=== PATIENT | female | born 1985 | race Caucasian/White ===

== ENCOUNTER → 2016-12-08 | Outpatient (CLI) | payer BC ==
--- NOTE | 2016-12-08 21:51 | DI ---
OBSTETRICAL ULTRASOUND, 12/08/2016 4:00 PM: Clinical History: Antepartum screening. Previous Exam: None at this facility for this . ADJUSTED DATE FROM EARLY OBUS: 07/10/2016. There is a single live IUP currently in unstable presentation. Amnionic fluid content is normal. Feta l activity is observed as follows: Cardiac and extremity. The placenta is posterior corpus and lower in segment and Grade 0. The placenta does not encroach on the internal os. heart rate is 158 be ats/minute and regular. There is a 3 vessel cord. A 4 chamber heart view is obtained, but the views o f the RVOT and LVOT are suboptimal due to position. The descending aortic arch and the descendi ng aorta are normal. The ascending component of the arch is not optimally visualized. There is mild b ilateral pelviectasis that is still within normal limits. BPD, HC, AC, and FL measurements are 56 mm, 204 mm, 183 mm, and 37 mm, respectively. These measurements correspond to EGA values of 23 wee ks 1 day, 22 weeks 4 days, 23 weeks 1 day and 21 weeks 6 days, respectively. Composite EGA is 22 week s 5 days. The US EDC is 04/08/2017. EDC by adjusted date from early OBUS is 04/16/2017. Readin. Single live fetus with unstable presentation and normal amniotic fluid content. Placenta is poste rior corpus and grade 1. 2. The composite EGA is 22 weeks 5 days with an ultrasound EDC of 04/08/2017. The EDC is 04/16/2017 ba sed on the adjusted LMP of 07/10/2016. 3. Evaluation of the RVOT, LVOT, and the ascending aortic arch is not optimal due to position. Repeat followup scans are recommended. At that time, we can also reassess the status of both renal p elves.
== END ==
LOC: US 15:54
PROVIDERS: ATTEND Obstetrics & Gynecology
DX: Z36 Encounter for antenatal screening of mother (principal); Z3A.21 21 weeks gestation of pregnancy
CPT/HCPCS: 76805

== ENCOUNTER → 2016-12-16 | Outpatient (CLI) | payer BC ==
--- NOTE | 2016-12-16 21:46 | DI ---
LIMITED OBSTETRICAL ULTRASOUND, 12/16/2016 10:56 AM Clinical History: Followup scans to complete anatomic survey. Previous Exam: 12/08/2016. ADJUSTED LMP: 07/12/2016. There is a single live IUP currently in unstable presentation. Amnionic fluid content is normal. Feta l activity is observed as follows: Cardiac and extremity. The placenta is posterior corpus and Grade 1. heart rate is 163 beats/minute and regular. There is a 4 chamber heart view. RVOT and LVOT v iews are normal. The aortic arch is also normal. Transverse views through the kidneys show no dilatat ion of the renal pelves. Readin. Scans of the 4 chamber heart, RVOT, LVOT, and aortic arch are normal. 2. Scans of the kidneys show no pelviectasis. 3. The anatomic survey is complete and is normal.
== END ==
LOC: US 10:52
PROVIDERS: ATTEND Obstetrics & Gynecology
DX: Z36 Encounter for antenatal screening of mother (principal); Z3A.22 22 weeks gestation of pregnancy
CPT/HCPCS: 76816

== ENCOUNTER → 2017-01-29 | Outpatient (CLI) | payer BC ==
[2017-01-29 10:57] LABS: HEMATOCRIT 38.1 % (37.0-47.0); MEAN CORPUSCULAR HEMOGLOBIN 30.3 PG (27-31); MEAN CORPUSCULAR HGB CONC 34.1 g/dL (33-37); MEAN PLATELET VOLUME 8.6 FL (7.4-12.2); RDW COEFFICIENT OF VARIATION 12.7 % (11.5-14.5); RED BLOOD COUNT 4.29 10^6/uL (4.20-5.40); WHITE BLOOD COUNT 9.24 10^3/uL (4.8-10.8)
== END ==
LOC: LAB 09:40
PROVIDERS: ATTEND Obstetrics & Gynecology
DX: Z36 Encounter for antenatal screening of mother (principal); Z3A.28 28 weeks gestation of pregnancy
CPT/HCPCS: 36415; 82950; 85027

== ENCOUNTER 2017-03-15 17:52 | Outpatient (CLI) | payer BC ==
[2017-03-15] MEDS ORDERED: NORMAL SALINE 10 ML SYRINGE FLUSH IVP PRN (17:59)
[2017-03-15 18:02] VITALS: RESP 16; TEMP 97.9
[2017-03-15 18:20] LABS: HEMATOCRIT 38.6 % (37.0-47.0); HEMOGLOBIN 13.4 g/dL (12.0-16.0); MEAN CORPUSCULAR HEMOGLOBIN 30.5 PG (27-31); MEAN CORPUSCULAR HGB CONC 34.7 g/dL (33-37); MEAN CORPUSCULAR VOLUME 87.9 FL (81-99); MEAN PLATELET VOLUME 8.9 FL (7.4-12.2); RED BLOOD COUNT 4.39 10^6/uL (4.20-5.40)
[2017-03-15 18:34] LABS: BLOOD UREA NITROGEN 9 mg/dL (7-22); CALCIUM 8.3 mg/dL (8.7-10.7); EST GLOMERULAR FILTRATION > 60 (>60 ml/min/1.73m(2)); SERUM ALBUMIN 3.4 g/dL (3.5-4.8); URIC ACID 4.1 mg/dl (2.5-6.2)
== END 2017-03-15 19:00 | disposition home or self-care (01) ==
LOC: OBOP 17:52
PROVIDERS: ATTEND Obstetrics & Gynecology
DX: O26.893 Other specified pregnancy related conditions, third trimester (principal); R51 Headache; Z3A.35 35 weeks gestation of pregnancy
CPT/HCPCS: 36415; 59025; 80053; 81003; 83615; 84550; 85025; 99211

== ENCOUNTER → 2017-03-23 | Outpatient (CLI) | payer BC | LOC: MOB LAB 14:49 | PROVIDERS: ATTEND Obstetrics & Gynecology | DX: Z36 Encounter for antenatal screening of mother (principal); Z3A.36 36 weeks gestation of pregnancy | CPT/HCPCS: 87150 ==

== ENCOUNTER 2017-04-09 20:31 | Outpatient (CLI) | payer BC ==
[~2017-04-09 20:31] MED LIST: NORMAL SALINE 10 ML SYRINGE FLUSH IVP PRN
[2017-04-09 21:26] VITALS: RESP 20; TEMP 98.3
--- NOTE | 2017-04-10 08:38 | PDOC(PROG) ---
Intake - - Reason for Visit/Chief Complaint: Leakage of Fluid Admitted From: Home - LMP: 07/10/16 Estimated Due Date: 04/16/17 Gestational Age in Weeks and Days: 39 Weeks and 1 Days : 4 Para: 3 Term Births: 2 Births: 0 Number of Abortions (Spont./Elective): 0 Living Children: 2 - Labs Blood Type and Rh: O+ Group B Strep: Negative Hepatitis B Surface Antigen: Absent HIV: Negative Rubella Status: Immune VDRL/RPR: Absent Maternal - Vital Signs Last Taken Vital Signs: Vital Signs - Last Taken Temperature 98.3 F 04/09/17 20:12 Pulse Rate 82 04/09/17 20:12 Respiratory Rate 20 04/09/17 20:12 Blood Pressure 139/87 04/09/17 20:12 Pulse Ox 99 04/09/17 20:12 - Uterine Activity Uterine Contraction Monitor Mode: External Contraction Frequency(minutes): x2 Contraction Duration (seconds): 40-80 Uterine Contraction Pattern: Irregular Uterine Tone Measurement Phase: Resting Uterine Contraction Intensity: Mild - Vaginal Discharge Vaginal Bleeding Amount: None Monitoring - Uterine Activity Uterine Contraction Monitor Mode: External Contraction Frequency(minutes): x2 Contraction Duration (seconds): 40-80 Uterine Contraction Pattern: Irregular Uterine Tone Measurement Phase: Resting Uterine Contraction Intensity: Mild Results - Bedside Testing Bedside Urine Ketone: Negative Bedside Urine Leukocytes Esterase: Trace Bedside Urine Nitrite: Negative Bedside Urine Occult Blood: Negative Bedside Urine Protein: Negative Bedside Specific [place]: 1.010 Assessment and Plan - Patient Problems (1) Term Status: Acute (2) Vaginal discharge during in third trimester Status: AcuteSupport Text: Patient presented for evaluation of LOF. Amnisure negative. Reactive NST. Discharged to home with precautions.
== END 2017-04-09 21:00 | disposition home or self-care (01) ==
LOC: OBOP 20:31
PROVIDERS: ATTEND Obstetrics & Gynecology
DX: O26.893 Other specified pregnancy related conditions, third trimester (principal); N89.8 Other specified noninflammatory disorders of vagina; Z3A.39 39 weeks gestation of pregnancy
CPT/HCPCS: 59025; 81003; 84112; 99211

== ENCOUNTER 2017-04-17 10:50 | Inpatient (IN) | payer BC ==
[2017-04-17] MEDS ORDERED: Naloxone Inj 0.01 MG in Normal Saline Flush 1 ML IVP PRN (11:13)
[2017-04-17] MEDS ORDERED: OXYTOCIN 10 UNIT/1 ML IM PRN (11:13)
[2017-04-17] MEDS ORDERED: BUTORPHANOL TARTRATE 2 MG/1 ML VIAL IVP PRN (11:13)
[2017-04-17] MEDS ORDERED: Carboprost Inj 250 MCG/ML AMP IM PRN ×2 (11:13→12:45)
[2017-04-17] MEDS ORDERED: Metoclopramide Inj 10 MG/2 ML VIAL IV PRN (11:13)
[2017-04-17] MEDS ORDERED: CITRIC ACID/SODIUM CITRATE 30 ML CUP PO PRN (11:13)
[2017-04-17] MEDS ORDERED: MISOPROSTOL 200 MCG TABLET RECTAL PRN (11:13)
[2017-04-17] MEDS ORDERED: TERBUTALINE SULFATE 1 MG/1 ML SDV SUBCUT PRN (11:13)
[2017-04-17] MEDS ORDERED: Lidocaine 1% 10 MG/ML - 20 ML VIAL SUBCUT PRN (11:13)
[2017-04-17] MEDS ORDERED: METHYLERGONOVINE MALEATE 0.2 MG/1 ML VIAL IM PRN ×2 (11:13→12:45)
[2017-04-17] MEDS ORDERED: Nalbuphine Inj 20 MG/ML Ampule IVP PRN ×2 (11:13→12:45)
[2017-04-17] MEDS ORDERED: ONDANSETRON 4 MG/2 ML VIAL IVP PRN ×2 (11:13→12:45)
[2017-04-17] MEDS ORDERED: LIDOCAINE W/ SODIUM BICARB 0.5 ML SYR SUBD PRN (11:13)
[2017-04-17] MEDS ORDERED: Phenylephrine Inj 50 MCG in Normal Saline Flush 0.5 ML IVP PRN (11:13)
[2017-04-17] MEDS ORDERED: CALCIUM CARBONATE 500 MG (TUMS) CHEWABLE TABLET PO PRN ×2 (11:13→12:45)
[2017-04-17] MEDS ORDERED: CefOXitin Inj 2 GM in Sodium Chloride 0.9% 100 ML IV PRN (11:13)
[2017-04-17] MEDS ORDERED: fentaNYL Inj 100 MCG/2 ML VIAL IV PRN (11:13)
[2017-04-17] MEDS ORDERED: Famotidine Inj 20 MG in Normal Saline Flush 10 ML IVP PRN ×4 (11:13)
[2017-04-17] MEDS ORDERED: ePHEDrine Inj 5 MG in Normal Saline Flush 1 ML IVP PRN (11:13)
[2017-04-17] MEDS ORDERED: NALOXONE 0.4 MG/1 ML VIAL IVP PRN (11:13)
[2017-04-17] MEDS ORDERED: diphenhydrAMINE 50 MG/1 ML VIAL IVP PRN ×2 (11:13→12:45)
[2017-04-17] MEDS ORDERED: NORMAL SALINE 10 ML SYRINGE FLUSH IVP PRN ×2 (11:13→12:45)
[2017-04-17] MEDS ORDERED: Oxytocin 20 Units + LR 1,000 ML IV SCH ×2 (11:15→12:45)
[2017-04-17] MEDS ORDERED: Lactated Ringers-OB Dept 1,000 ML PRIMARY IV SCH (11:15)
[2017-04-17 11:50] LABS: HEMATOCRIT 38.9 % (37.0-47.0); HEMOGLOBIN 13.4 g/dL (12.0-16.0); MEAN CORPUSCULAR HEMOGLOBIN 30.2 PG (27-31); MEAN CORPUSCULAR HGB CONC 34.4 g/dL (33-37); MEAN CORPUSCULAR VOLUME 87.8 FL (81-99); MEAN PLATELET VOLUME 9.6 FL (7.4-12.2); RED BLOOD COUNT 4.43 10^6/uL (4.20-5.40)
--- NOTE | 2017-04-17 12:43 | OB.DEL.SUM ---
Delivery Note Delivery Summary: The patient presented in labor at 4 cm dilation. Amniotomy was performed at 6 cm dilation with return of clear fluid, and she progressed rapidly to complete dilation. She pushed several times to of a viable male , Apgars 8/10 , weight 7# 14 oz., over an intact perineum. Nuchal cord x1 was reduced on the perineum. The placenta delivered promptly, spontaneously, intact, with a 3 vessel cord. EBL 200 ml. There were no complications. Mother and baby tolerated delivery well.
[2017-04-17] MEDS ORDERED: HYDROcodone-APAP 5 MG -325 MG TABLET PO PRN (12:45)
[2017-04-17] MEDS ORDERED: Methylergonovine Tab 0.2 MG TAB PO PRN (12:45)
[2017-04-17] MEDS ORDERED: DIPH,PERTUSS,TET(ADACEL) VAC/PF 0.5 ML (Tdap) IM SCH (12:45)
[2017-04-17] MEDS ORDERED: BENZOCAINE/MENTHOL SPRAY 56 GM BOTTLE TOPICAL PRN (12:45)
[2017-04-17] MEDS ORDERED: LANOLIN HPA 40 GM TUBE TOPICAL PRN (12:45)
[2017-04-17] MEDS ORDERED: MISOPROSTOL 200 MCG TABLET RECTAL ONE (12:45)
[2017-04-17] MEDS ORDERED: diphenhydrAMINE 25 MG CAPSULE PO PRN (12:45)
[2017-04-17] MEDS ORDERED: OXYTOCIN 10 UNIT/1 ML IM ONE (12:45)
[2017-04-17] MEDS ORDERED: Ondansetron ODT Tab 4 MG TAB PO PRN (12:45)
[2017-04-17] MEDS ORDERED: ACETAMINOPHEN 325 MG TABLET PO PRN (12:45)
[2017-04-17] MEDS ORDERED: GLYCERIN/WITCH HAZEL 1 BOX TOPICAL PRN (12:45)
[2017-04-17] MEDS ORDERED: IBUPROFEN 800 MG TABLET PO ONE (12:54)
[2017-04-17] MEDS: IBUPROFEN 800 MG TABLET PO PRN ×2 (13:05→21:02)
[2017-04-17] MEDS: DOCUSATE 100 MG CAPSULE PO SCH (21:07)
[2017-04-18] MEDS: IBUPROFEN 800 MG TABLET PO PRN (05:15)
[2017-04-18 05:39] LABS: HEMATOCRIT 36.5 % (37.0-47.0); HEMOGLOBIN 12.5 g/dL (12.0-16.0); MEAN CORPUSCULAR HEMOGLOBIN 30.3 PG (27-31); MEAN CORPUSCULAR HGB CONC 34.2 g/dL (33-37); MEAN CORPUSCULAR VOLUME 88.6 FL (81-99); MEAN PLATELET VOLUME 9.6 FL (7.4-12.2); RED BLOOD COUNT 4.12 10^6/uL (4.20-5.40)
[2017-04-18] MEDS: DOCUSATE 100 MG CAPSULE PO SCH (08:49)
[2017-04-18] MEDS ORDERED: Prenatal Multivitamin Tab 1 TAB TAB PO SCH (09:00)
--- NOTE | 2017-04-18 09:25 | DCSUMMARY ---
Hospitalization Summary Admit Date: 04/17/17 Discharge Date: 04/18/17 Primary Diagnosis:: Term , Delivered Delivery Type: Vaginal Hospital Course: Uncomplicated labor, delivery, and course. / Postop Complications: None Grace Complications: None Exam - Vitals Vital Signs: Vital Signs Temperature 98.2 F Temperature Source Oral Pulse Rate [Pulse Oximeter] 78 Pulse Rate 95 Respiratory Rate 18 Blood Pressure [Right Arm] 116/64 Blood Pressure 135/83 Pulse Ox 98 Oxygen Delivery Method Room Air Height 5 ft 9 in Weight 228 lb
[2017-04-18 10:23] VITALS: RESP 16; TEMP 98.3
== END 2017-04-18 13:37 | disposition home or self-care (01) | DRG 775 ==
LOC: OBIP 10:50
PROVIDERS: ADMIT Obstetrics & Gynecology; ATTEND Obstetrics & Gynecology
PROC: 10E0XZZ Delivery of Products of Conception, External Approach (ICD-10-PCS; principal; 2017-04-17)
DX: O80 Encounter for full-term uncomplicated delivery (principal); Z3A.40 40 weeks gestation of pregnancy; Z37.0 Single live birth
CPT/HCPCS: 36415; 81003; 85027; J2210; J7120